=== PATIENT | female | born 1995 | race African-American/Black ===

== ENCOUNTER 2018-04-04 10:54 | Emergency (ER) | payer SELFPAY ==
[~2018-04-04] VITALS: Ht 170.2 cm; Wt 64.7 kg
[2018-04-04 11:06] VITALS: BP 92/76
== END 2018-04-04 13:07 | disposition left against medical advice (07) ==
LOC: EME 10:54
DX: R11.2 Nausea with vomiting, unspecified (principal); Z53.21 Procedure and treatment not carried out due to patient leaving prior to being seen by health care provider